=== PATIENT | female | born 1935 | race African-American/Black ===

== ENCOUNTER 2016-07-05 07:25 | Day surgery (SDC) | payer MEDICARE, BC ==
[2016-06-30 13:24] LABS: HEMATOCRIT 37.7 % (36.0-48.0); HEMOGLOBIN 12.3 g/dL (12.0-16.0)
[2016-06-30 13:36] LABS: BUN (BLOOD UREA NITROGEN) 27 MG/DL (6-23); CALCIUM, SERUM 8.7 MG/DL (8.5-10.4); CHLORIDE, SERUM 105 MMOL/L (96-112); CO2 (CARBON DIOXIDE) 26 MMOL/L (24-34); CREATININE 1.49 MG/DL (0.55-1.02); GFR AFRICAN AMERICAN 39 ML/MIN (>=60); GFR NON AFRICAN AMERICAN 33 ML/MIN (>=60); GLUCOSE, SERUM 249 MG/DL (60-99); POTASSIUM, SERUM 4.3 MMOL/L (3.5-5.3); SODIUM, SERUM 141 MMOL/L (135-148)
--- NOTE | ~2016-07-05 | OP ---
Record Of Operation [facility] [address] [place]. [address] NAME: PABLO ROBERTS : 39 STATUS : REG [facility]#: [id number] AGE: 80 ADM/REG DATE : 07/05/16 MR#: [id number] REPORT SERV DATE: 07/05/16 DICTATED BY: GIUSEPPE COBB III DATE: 07/05/16 REPORT STATUS : Draft TRANSCRIBED BY: MODL DATE: 07/05/16 DATE OF PROCEDURE: 07/05/2016 PREOPERATIVE DIAGNOSIS: Urinary tract infection. POSTOPERATIVE DIAGNOSIS: Normal bladder, normal bilateral retrograde pyelograms. PROCEDURE: Cystoscopy and bilateral retrograde pyelogram. SURGEON: Giuseppe Cobb M.D. ANESTHESIA: General. SPECIMENS: None. DRAINS: None. INDICATION: Ms Roberts is a 80-year-old, black female, who recently had a urinary tract infection. We are asked to evaluate for any predisposing factors. Consent was obtained for cystoscopy and bilateral retrograde pyelograms. PROCEDURE IN DETAIL: After consent was obtained, the patient was identified. She was taken to the OR and put to sleep. She was positioned in the low lithotomy position and prepped and draped in usual fashion. The 18-Slovak cystoscope was made ready and inserted into the bladder. The bladder was inspected. There were no tumors, stones, or foreign bodies. The urothelium appeared normal. The ureteral orifices were normally positioned and had a normal configuration. A cone-tipped ureteral catheter was then flushed with contrast and bilateral retrograde pyelograms were obtained. There were no filling defects, obstructions, or other abnormalities. Both pyelograms were normal. The bladder was then drained. The scope was removed. The patient was awakened and taken to recovery in stable condition. PH/MODL Giuseppe Cobb III, M.D. / [id number] CC: Ashley Hernandez III, M.D.
[~2016-07-05 07:25] MED LIST: *HOMEMEDS; *UNABLE1; ASCRIPTIN PO; B121000P IM; BLINK TEARS OP; C5; CALTRAT600 PO; CARDCD120 PO; CHLORTHALIDONE; CITRACAL PO; COREG25 PO; CORICIDI2 PO; COZ25 PO; COZAAR100 MG PO; CRESTOR40 MG PO; CYPROHEPTAD4 MG OR; DIL2TAB PO; FIORINALC PO; FLEX PO; FOLIC ACID400 MC1 PO; FOLIC PO; HUMALOG SC; HUMAPUMP SC; HYGROTON 25 MG25 MG PO; IMDUR30 PO; INSULIN PUMP; LEVEMIR SC; LIPITOR20 PO; LIPITOR80 MG PO; LISINOPRIL40 MG PO; MAXIMUM D3 PO; MOBIC7.5 PO; MOMUD PO; NORCO1 TA1 PO; NORV10 PO; NORV5 PO; NOVLOGPUMP; NOVLOGPUMP SC; NOVOPEN SC; PCET PO; PRILOSEC40 MG PO; PROTONIX20 MG PO; REG PO; REG5 PO; REPATHA; REPATHA SC; SODBICAR10 PO; SPIRO25 PO; SYN112 PO; TESS PO; TRESIBA FL100 UNIT/1 SC; TRIAMCINOLON0.13 EX; TRILIPIX135 MG PO; WELCHOL625 MG OR; ZANTAC 150 PO; ZANTAC150 MG PO; ZETIA PO; ZYRTEC ALLGY10 MG PO; [UNRECOGNIZED DRUG - OTHER] PO
[2016-09-30] MEDS ORDERED: LEVOTHYROXIN112 MCG PO (20:33)
[2016-09-30] MEDS ORDERED: CARD120 PO (20:33)
[2016-09-30] MEDS ORDERED: HYGROTON 25 MG25 MG PO (20:34)
[2016-09-30] MEDS ORDERED: COREG25 PO (20:34)
[2016-09-30] MEDS ORDERED: COZAAR100 MG PO (20:34)
[2016-09-30] MEDS ORDERED: TRESIBA FL100 UNIT/1 SC (20:35)
[2016-09-30] MEDS ORDERED: LIPITOR20 PO (20:35)
[2016-09-30] MEDS ORDERED: NOVOLOG SC ×3 (20:36→20:37)
[2016-09-30] MEDS ORDERED: KRILLOIL PO (20:37)
[2016-09-30] MEDS ORDERED: MOMUD PO (20:38)
[2016-09-30] MEDS ORDERED: CORICIDIN PO (20:38)
[2016-09-30] MEDS ORDERED: PSYLLIUM PO (20:38)
[2016-09-30] MEDS ORDERED: BION TEARS (20:39)
[2016-09-30] MEDS ORDERED: MAXIMUM D (20:41)
[2016-09-30] MEDS ORDERED: VITAMIN D2000 UNIT PO (20:42)
== END 2016-07-05 12:50 | disposition home or self-care (01) ==
LOC: SDC 07:25
PROVIDERS: Urology
PROC: BT14YZZ Fluoroscopy of Kidneys, Ureters and Bladder using Other Contrast (ICD-10-PCS; principal; 2016-07-05 09:30)
DX: N39.0 Urinary tract infection, site not specified (principal); N18.9 Chronic kidney disease, unspecified; I12.9 Hypertensive chronic kidney disease with stage 1 through stage 4 chronic kidney disease, or unspecified chronic kidney disease; E11.22 Type 2 diabetes mellitus with diabetic chronic kidney disease; E78.5 Hyperlipidemia, unspecified; E03.9 Hypothyroidism, unspecified; E78.00 Pure hypercholesterolemia, unspecified; M19.90 Unspecified osteoarthritis, unspecified site; K21.9 Gastro-esophageal reflux disease without esophagitis; K44.9 Diaphragmatic hernia without obstruction or gangrene; Z88.5 Allergy status to narcotic agent; Z88.8 Allergy status to other drugs, medicaments and biological substances; Z79.4 Long term (current) use of insulin; Z79.899 Other long term (current) drug therapy; Z98.42 Cataract extraction status, left eye; Z96.1 Presence of intraocular lens; Z96.651 Presence of right artificial knee joint; Z90.710 Acquired absence of both cervix and uterus; Z98.890 Other specified postprocedural states
CPT/HCPCS: 74420; 80048; 82962; 85014; 85018; 93005; A9270-GY; J2405; J3010; Q9967